=== PATIENT | male | born 2000 | race African-American/Black ===

== ENCOUNTER 2018-01-10 17:26 | Emergency (ER) | payer MEDICAID ==
[~2018-01-10] VITALS: Ht 188 cm; Wt 84.1 kg
[2018-01-10] MEDS ORDERED: LEVO88TA4 PO (17:50)
[2018-01-10] MEDS: IBUPROFEN 600 MG TABLET PO ONE (19:32)
[2018-01-10 19:47] VITALS: BP 132/64
== END 2018-01-10 19:53 | disposition home or self-care (01) ==
LOC: EMS 17:27
DX: S93.602A Unspecified sprain of left foot, initial encounter (principal); E03.9 Hypothyroidism, unspecified; X58.XXXA Exposure to other specified factors, initial encounter; Y93.67 Activity, basketball; Y92.89 Other specified places as the place of occurrence of the external cause; Y99.8 Other external cause status

== ENCOUNTER 2018-02-25 16:10 | Emergency (ER) | payer MEDICAID ==
[~2018-02-25] VITALS: Ht 188 cm; Wt 83.2 kg
[~2018-02-25 16:10] MED LIST: LEVO88TA4 PO
[2018-02-25] MEDS ORDERED: PSEUDOEPHEDRINE HCL 30 MG TABLET PO ONE (17:00)
[2018-02-25] MEDS ORDERED: BENZONATATE 100 MG CAPSULE PO ONE (17:00)
[2018-02-25 17:45] VITALS: BP 118/64
[2018-02-25 18:00] LABS: INFLUENZA TYPE A NEGATIVE FOR TYPE A (NEGATIVE); INFLUENZA TYPE B NEGATIVE FOR TYPE B (NEGATIVE)
== END 2018-02-25 18:15 | disposition home or self-care (01) ==
LOC: EMS 16:11
DX: J06.9 Acute upper respiratory infection, unspecified (principal); E03.9 Hypothyroidism, unspecified; Z79.899 Other long term (current) drug therapy
CPT/HCPCS: 87804

== ENCOUNTER 2018-05-10 13:03 | Emergency (ER) | payer MEDICAID ==
[~2018-05-10] VITALS: Ht 188 cm; Wt 83.2 kg
[2018-05-10 17:46] VITALS: BP 122/68
== END 2018-05-10 17:50 | disposition home or self-care (01) ==
LOC: EMS 13:03
DX: S32.311A Displaced avulsion fracture of right ilium, initial encounter for closed fracture (principal); E03.9 Hypothyroidism, unspecified; W19.XXXA Unspecified fall, initial encounter; Y93.67 Activity, basketball; Y92.89 Other specified places as the place of occurrence of the external cause; Y99.8 Other external cause status
CPT/HCPCS: 73502